=== PATIENT | male | born 1985 | race Caucasian/White ===

== ENCOUNTER 2019-06-16 06:21 | Observation (INO) | payer BC ==
--- NOTE | 2019-06-16 06:48 | ED ---
General Adult HPI - General Chief complaint: GI Bleed Stated complaint: Foreign Body Time Seen by Provider: 06/16/19 06:38 Source: patient, RN notes reviewed Mode of arrival: ambulatory Limitations: no limitations - History of Present Illness Initial comments: This a 33-year-old male presents emergency Department chief complaint of rectal foreign body. Patient states that he has apparently 5-6 inch long hard plastic sex toy in which he states that he slipped and the entered into his rectum. Patient states that he attempted to get it out with straining and using his finger but states he cannot palpated. Patient denies any pains at this time, minimal bleeding. - Related Data Allergies Allergy/AdvReac Type Severity Reaction Status Date / Time No Known Allergies Allergy Verified 06/16/19 06:35 Review of Systems ROS Statement: Those systems with pertinent positive or pertinent negative responses have been documented in the HPI. ROS Other: All systems not noted in ROS Statement are negative. Past Medical History Past Medical History: No Reported History History of Any Multi-Drug Resistant Organisms: None Reported Past Surgical History: No Surgical Hx Reported Past Psychological History: No Psychological Hx Reported Smoking Status: Never smoker Past Alcohol Use History: None Reported Past Drug Use History: None Reported General Exam Limitations: no limitations General appearance: alert, in no apparent distress Head exam: Present: atraumatic, normocephalic, normal inspection Eye exam: Present: normal appearance, PERRL, EOMI. Absent: scleral icterus, conjunctival injection, periorbital swelling Respiratory exam: Present: normal lung sounds bilaterally. Absent: respiratory distress, wheezes, rales, rhonchi, stridor Cardiovascular Exam: Present: regular rate, normal rhythm, normal heart sounds. Absent: systolic murmur, diastolic murmur, rubs, gallop, clicks GI/Abdominal exam: Present: soft, normal bowel sounds. Absent: distended, tenderness, guarding, rebound, rigid Neurological exam: Present: alert, oriented X3, CN II-XII intact Skin exam: Present: warm, dry, intact, normal color. Absent: rash Course Vital Signs 06/16/19 06:31 Temperature 98.3 F Pulse Rate 75 Respiratory 20 Rate Blood Pressure 156/97 O2 Sat by Pulse 99 Oximetry Medical Decision Making - Medical Decision Making 33-year-old male presented for rectal foreign body. Patient case discussed with on-call surgery Dr. Suero who will take patient to operating room for removal. Disposition Clinical Impression: Rectal foreign body Disposition: ADMITTED IP TO THIS HOSP Condition: Stable Referrals: None,Stated [Primary Care Provider] - 1-2 days
--- NOTE | 2019-06-16 07:45 | XR ---
EXAM: XR Abdomen, 1 View. CLINICAL HISTORY: Reason: ABD PAIN TECHNIQUE: Frontal supine view of the abdomen/pelvis. COMPARISON: No relevant prior studies available. FINDINGS: Gastrointestinal tract: There is a cylindrical foreign body within the projection of the lower abdominal and pelvic midline, possibly within the distal sigmoid. Bowel gas pattern is nonobstructive. Bones: No acute osseous abnormality. IMPRESSION: Cylindrical foreign body within the projection of the lower abdominal and pelvic midline. This may be within the distal sigmoid colon. If clinically indicated, lateral radiographic view may be obtained to confirm location.
--- NOTE | 2019-06-16 08:17 | P.GSHP ---
History of Present Illness H&P Date: 06/16/19 CHIEF COMPLAINT: Rectal foreign body HISTORY OF PRESENT ILLNESS: The patient is a 33 year old male who presented to the emergency room with foreign body in the colon within the last several hours. No moderate or persistent bleeding from the rectum. No reports of abdominal pain. No reports of nausea and vomiting. Films of abdominal x-ray confirmed foreign body contained in the sigmoid colon/rectum irretrievable by hand. As a result of findings, Gen. surgery is consulted. PAST MEDICAL HISTORY: See list. PAST SURGICAL HISTORY: See list. MEDICATIONS: See list. ALLERGIES: See list. SOCIAL HISTORY: See list. FAMILY HISTORY: No reports of Crohn's disease or inflammatory bowel disease REVIEW OF ORGAN SYSTEMS: CONSTITUTIONAL: No fevers or chills. No recent weight loss. EYES: Denies any trouble with vision. No glasses. HEENT: No difficulties with hearing. No nosebleeds. No difficulty swallowing. RESPIRATORY: Denies pneumonia. Denies any troubles with breathing or dyspnea on exertion. CARDIOVASCULAR: Denies any chest pain, palpitations, or recent heart attacks. GASTROINTESTINAL: Denies fatty food intolerance. No gastric esophageal reflux disease GENITOURINARY: Denies any blood in urine or increased urinary frequency. NEUROLOGICAL: Denies any numbness or tingling along the distal extremities. No seizure disorders or headaches. MUSCULOSKELETAL: Denies any back pain, stiffness or joint arthritis. SKIN: No current skin cancer. No rash. PSYCHIATRIC: Denies current depression or suicidal thoughts. ENDOCRINE: Denies current thyroid disorders. Denies any blood sugar glucose intolerance. On testosterone supplements HEME/LYMPHATIC: Denies any lumps and bumps around the neck. No recent deep venous thrombosis. ALLERGY/IMMUNOLOGY: No immunoglobulin therapy. No immune deficiencies. BREAST: Denies current breast lumps, pain or nipple discharge. PHYSICAL EXAM: VITALS: Reviewed CONSTITUTIONAL: Well developed and in no acute distress. EYES: Conjuctivae without sclera icterus. Pupils are equally round and reactive to light. Extraocular movements grossly intact. HEAD, EARS, NOSE, THROAT: Moist buccal mucosa. Head is atraumatic, normocephalic. Hears conversational speech. No nasal drainage. Good dentition. NECK: Supple. No JV distention. No thyroidomegaly. RESPIRATORY: Non-labored respirations and equal bilateral excursions. No gross wheezes. CARDIOVASCULAR: Regular rate and rhythm. Extremities without moderate edema. Palpable 2+ radial pulses. ABDOMEN: No hepatomegaly. Soft. Non-tender. Nondistended. LYMPH: No neck lymphadenopathy. No axillary lymphadenopathy. MUSCULOSKELETAL: Range of motion bilateral upper extremities within normal limits. Nail and fingers with good capillary refill. SKIN: Warm and well perfused with good skin turgor. NEUROLOGIC: Cranial nerves I through XII grossly intact. Sensation upper and extremities intact. No focal or lateralizing signs. PSYCH: Appropriate affect. Alert and oriented to person, place and time. Displays appropriate insight. CLINCAL LABS: None available at this time RADIOLOGY: Report reviewed confirmed foreign body sigmoid colon IMAGING: Independently reviewed with 3 cm diameter fibroid or the distal sigmoid colon/rectum. No obstructive gas pattern or free air identified. ASSESSMENT: 1. Rectal/sigmoid foreign body PLAN: 1. Colonoscopic retrieval versus exploratory laparotomy described to patient. Benefits risks of procedure were reviewed which he wished to proceed. 2. Stat CBC including competence of metabolic panel and type and screen requested 3. 12-lead EKG for general anesthetic 4. Antibiotic prophylaxis for preop Thank you for this kind consultation. Past Medical History Past Medical History: No Reported History History of Any Multi-Drug Resistant Organisms: None Reported Past Surgical History: No Surgical Hx Reported Past Psychological History: No Psychological Hx Reported Smoking Status: Never smoker Past Alcohol Use History: None Reported Past Drug Use History: None Reported Medications and Allergies Home Medications Medication Instructions Recorded Confirmed Type Testosterone Cypionate 50 mg IM FR 06/16/19 06/16/19 History [Depo-Testosterone] Allergies Allergy/AdvReac Type Severity Reaction Status Date / Time No Known Allergies Allergy Verified 06/16/19 07:47 Surgical - Exam Vital Signs Temp Pulse Resp BP Pulse Ox 98.3 F 75 20 156/97 99 06/16/19 06:31 06/16/19 06:31 06/16/19 06:31 06/16/19 06:31 06/16/19 06:31 Assessment and Plan (1) Foreign body in colon, initial encounter Current Visit: Yes Status: Acute Code(s): T18.4XXA - FOREIGN BODY IN COLON, INITIAL ENCOUNTER SNOMED Code(s): 73535477 (2) Rectal foreign body Current Visit: Yes Status: Acute Code(s): T18.5XXA - FOREIGN BODY IN ANUS AND RECTUM, INITIAL ENCOUNTER SNOMED Code(s): 96954927
[2019-06-16 09:50] LABS: African American GFR (CKD) >90 (>60 ml/min/1.73 sqM); Albumin 4.7 g/dL (3.5-5.0); Anion Gap 9 mmol/L; Blood Urea Nitrogen 13 mg/dL (9-20); Calcium 9.8 mg/dL (8.4-10.2); Carbon Dioxide 27 mmol/L (22-30); Chloride 104 mmol/L (98-107); Glucose 87 mg/dL (74-99); Sodium 140 mmol/L (137-145); Total Bilirubin 0.8 mg/dL (0.2-1.3); Total Protein 7.7 g/dL (6.3-8.2)
[2019-06-16 09:54] LABS: Basophils # (A) 0.1 k/uL (0-0.2); Basophils % (A) 0 %; Eosinophils # (A) 0.1 k/uL (0-0.7); Eosinophils % (A) 1 %; HCT 55.9 % (39.0-53.0); Lymphocytes % (A) 6 %; MCH 30.2 pg (25.0-35.0); MCHC 34.4 g/dL (31.0-37.0); Mean Platelet Volume 7.3; Monocytes # (A) 0.6 k/uL (0-1.0); Monocytes % (A) 4 %; Neutrophils % (A) 88 %; Platelet Count 219 k/uL (150-450); RBC 6.36 m/uL (4.30-5.90); WBC 15.9 k/uL (3.8-10.6)
[2019-06-16] MEDS ORDERED: LACTATED RINGERS 1,000 ML IV ONE (10:01)
[2019-06-16 10:08] LABS: ALT 62 U/L (21-72); AST 62 U/L (17-59); Alkaline Phosphatase 51 U/L (38-126); Potassium 5.7 mmol/L (3.5-5.1)
[2019-06-16 10:12] LABS: HGB 19.2 gm/dL (13.0-17.5)
[2019-06-16] MEDS ORDERED: fentaNYL (PF) 50 MCG/ML 2 ML AMP ONE (10:24)
[2019-06-16] MEDS ORDERED: SUCCINYLCHOLINE CHLORIDE 100 MG/5 ML SYR IV ONE (10:24)
[2019-06-16] MEDS ORDERED: PROPOFOL 10 MG/ML 20 ML VIAL IV ONE (10:24)
[2019-06-16] MEDS ORDERED: MIDAZOLAM 2 MG/2 ML VIAL ONE (10:24)
[2019-06-16] MEDS ORDERED: LIDOCAINE 1% INJ 10MG/ML (20 ML MDV) ONE (10:24)
[2019-06-16] MEDS ORDERED: NALOXONE 0.4 MG/ML 1 ML VIAL IV PRN (11:33)
[2019-06-16] MEDS ORDERED: oxyCODONE-APAP 5-325MG 1 EACH TAB PO PRN (11:33)
[2019-06-16] MEDS ORDERED: ACETAMINOPHEN IV (For NPO) 1,000 MG in EMPTY BAG 1 BAG IVPB ONE (11:33)
[2019-06-16] MEDS ORDERED: SODIUM CHLORIDE 0.9% 2,000 ML IV ONE (11:34)
[2019-06-16 11:35] VITALS: RESP 16
--- NOTE | 2019-06-16 11:39 | P.OP ---
Date of Procedure: 06/16/19 Preoperative Diagnosis: Foreign body in colon, large bowel obstruction Postoperative Diagnosis: same Procedure(s) Performed: Exam under anesthesia, intraop flex sigmoidoscopy, retrieval of foreign body Anesthesia: CANDIDA Surgeon: Dori Lee Estimated Blood Loss (ml): 1 Pathology: none sent Condition: stable Disposition: floor Operative Findings: 1. Vibrator over 15 cm in sigmoid colon and rectum at 10 cm from anal verge removed with combination of abdominal pressure and digital retrieval 2. Scope to 50 cm/splenic flexure with small mucousal tear at rectum
[2019-06-16] MEDS ORDERED: metroNIDAZOLE-NS PMX 500 MG in SALINE 1 100ML.BAG IVPB SCH (12:00)
[2019-06-16 13:26] VITALS: BMI 27.2
[2019-06-16 13:47] VITALS: PULSE 94; TEMP 98.4
[2019-06-16 16:23] VITALS: BP 130/57
--- NOTE | 2019-06-16 17:49 | P.DS ---
Providers Date of admission: 06/16/19 08:05 Expected date of discharge: 06/16/19 Attending physician: Dori Lee Primary care physician: Stated None - Discharge Diagnosis(es) (1) Foreign body in colon, initial encounter Current Visit: Yes Status: Acute (2) Rectal foreign body Current Visit: Yes Status: Acute Patient Condition at Discharge: Stable Plan - Discharge Summary New Discharge Prescriptions: No Action Testosterone Cypionate [Depo-Testosterone] 50 mg IM FR Discharge Medication List Testosterone Cypionate [Depo-Testosterone] 50 mg IM FR 06/16/19 [History] Follow up Appointment(s)/Referral(s): None,Stated [Primary Care Provider] - 1-2 days Patient Instructions/Handouts: *Surgery [facility] - (Anesthesia) Endoscopy Discharge Instructions Activity/Diet/Wound Care/Special Instructions: Monitor for any increase blood in stools. Take tylenol for pain. Discharge Disposition: HOME SELF-CARE
[2019-06-16 18:16] LABS: African American GFR (CKD) >90 (>60 ml/min/1.73 sqM); Anion Gap 12 mmol/L; Blood Urea Nitrogen 13 mg/dL (9-20); Calcium 9.7 mg/dL (8.4-10.2); Carbon Dioxide 25 mmol/L (22-30); Chloride 101 mmol/L (98-107); Glucose 89 mg/dL (74-99); Potassium 4.6 mmol/L (3.5-5.1); Sodium 138 mmol/L (137-145)
[2019-06-16 18:43] LABS: Basophils # (A) 0.1 k/uL (0-0.2); Basophils % (A) 1 %; Eosinophils # (A) 0.1 k/uL (0-0.7); Eosinophils % (A) 1 %; Lymphocytes # (A) 1.2 k/uL (1.0-4.8); Lymphocytes % (A) 9 %; MCH 29.2 pg (25.0-35.0); MCHC 32.8 g/dL (31.0-37.0); MCV 88.9 fL (80.0-100.0); Mean Platelet Volume 6.7; Monocytes # (A) 0.8 k/uL (0-1.0); Monocytes % (A) 6 %; Neutrophils # (A) 10.4 k/uL (1.3-7.7); Neutrophils % (A) 82 %; Platelet Count 258 k/uL (150-450); RBC 6.67 m/uL (4.30-5.90); RDW 13.7 % (11.5-15.5); WBC 12.6 k/uL (3.8-10.6)
[2019-06-16 18:53] LABS: HGB 19.5 gm/dL (13.0-17.5)
[2019-06-16 18:54] LABS: HCT 59.3 % (39.0-53.0)
--- NOTE | 2019-06-17 09:47 | P.PN ---
Progress Note - Text Progress Note Date: 06/17/19 I called patient's contact number for which no voicemail box was available. I notified his [place] about high Hgb results suspicious for Polycythemia vera and will need followup in the office. Flagyl antibiotic prescribed and sent to local pharmacy. Patient told to follow up in the office with arrangements made.
== END 2019-06-16 17:58 | disposition home or self-care (01) ==
LOC: EC 06:21 → 4MS4W 08:05 → 3NMEDONC 11:48
PROVIDERS: ADMIT Surgery Plastic and Reconstructive Surgery; ATTEND Surgery Plastic and Reconstructive Surgery
DX: T18.4XXA Foreign body in colon, initial encounter (principal); X58.XXXA Exposure to other specified factors, initial encounter; D58.2 Other hemoglobinopathies; Z79.890 Hormone replacement therapy
CPT/HCPCS: 99285; 93005; 86900; 86901; 80053; 80048; 85025; 86850; 74018; 45379; G0378 ×2; J2250; J0690; J2001; J3010; J0330; J2704